=== PATIENT | male | born 1965 | race African-American/Black ===

== ENCOUNTER 2020-09-01 09:48 | Inpatient (IN) | payer OTHER ==
[2020-09-01 11:02] LABS: BASOPHIL 0.1 % (0-2); EOSINOPHIL 0 % (0-5); HCT 44.3 % (42.0-52.0); HGB 14.6 g/dl (13.2-18.0); MCH 28.7 pg (25.0-31.0); MCV 87.2 fL (78.0-100.0); MONOCYTE 7.9 % (0-12); MPV 12.1 fL (6.0-9.5); NEUTROPHIL 79.4 % (41-80); NRBC 0; PLT 188 K/uL (150-400); RBC 5.08 M/uL (4.70-6.00); RDW 14.8 % (11.5-14.0); WBC 9.8 K/uL (4.0-10.5)
[2020-09-01 11:44] LABS: INR 1.08 (0.9-1.2); PROTHROMBIN TIME 13.3 SECONDS (11.4-13.6); PTT 28.5 SECONDS (22.2-34.7)
[2020-09-01 11:45] LABS: D-DIMER 0.93 ug/mLFEU (0.00-0.41)
[2020-09-01 11:47] LABS: PRO-BNP 7 pg/mL (<125)
[2020-09-01 12:10] LABS: BILIRUBIN - TOTAL 0.5 mg/dL (0.2-1.0); BUN/CREAT RATIO (CALC) 20.5 RATIO; C-REACTIVE PROTEIN 8.9 mg/dL (<=0.90); CREATININE 1.12 mg/dL (0.67-1.17); GLOBULIN (CALCULATION) 5.6 g/dL; MAGNESIUM 2.9 mg/dL (1.8-2.4); POTASSIUM 4.1 mmol/L (3.5-5.1); TOTAL PROTEIN 8.6 g/dL (6.4-8.2)
[2020-09-01 12:35] LABS: LACTIC ACID 1.2 mmol/L (0.4-1.9)
--- NOTE | 2020-09-01 12:54 | NUR ---
09/01/20 1200 CALLED TO ER FOR IV START. ATTEMPTED X2 WITHOUT SUCCESS. ORDER RECEIVED FOR MIDLINE INSERTION. PROCEDURE EXPLAINED TO PATIENT. PT PREPPED AND DRAPED IN STERILE FASHION. THE PT'S RIGHT UPPER ARM BASILIC VEIN WAS VISUALIZED USING THE SITE RITE 6 ULTRA SOUND. A 21 GA NEEDLE WAS USED. GOOD BLOOD RETURN WAS NOTED. THE GUIDE WIRE THREADED EASILY. THE NEEDLE WAS REMOVED AND THE MIDLINE CATHETER WAS PLACED OVER THE WIRE. THE WIRE AND SHEATH WERE REMOVED. GOOD BLOOD RETURN WAS NOTED. A CONNECTOR WAS FLUSHED AND PLACED OVER THE END OF THE CATHETER. A STAT LOCK WAS PLACED ON THE CATHETER AND A STERILE SORBAVIEW DRESSING WAS APPLIED OVER THE MIDLINE SITE. PT TOLERATED WELL. PT HAS A 20GA 10CM POWERGLIDE MIDLINE CAHETER IN HIS RIGHT UPPER ARM. GOOD FOR 29 DAYS. NOT A CENTRAL LINE. TOLERATED PROCEDURE WELL. REPORT TO Josemanuel ARAUJO RN IN ER.
[2020-09-01 18:52] LABS: BILIRUBIN NEGATIVE (NEGATIVE); BLOOD 2+ Ery/uL (NEGATIVE); CLARITY HAZY (CLEAR); COLOR YELLOW (YELLOW); GLUCOSE (U) NORMAL (NORMAL); LEUKOCYTES NEGATIVE Leu/uL (NEGATIVE); NITRITE NEGATIVE (NEGATIVE); PROTEIN 2+ mg/dL (NEGATIVE); SPECIFIC GRAVITY 1.025 (1.001-1.030); UROBILINOGEN 0.2 mg/dL (0.2-1.0)
[2020-09-02 05:15] LABS: BASOPHIL 0.1 % (0-2); EOSINOPHIL 0 % (0-5); HCT 43.4 % (42.0-52.0); HGB 13.6 g/dl (13.2-18.0); LYMPHOCYTE 13.3 % (15-48); MCH 27.9 pg (25.0-31.0); MCHC 31.3 g/dL (32.0-36.0); MCV 89.1 fL (78.0-100.0); MONOCYTE 5.5 % (0-12); MPV 12.6 fL (6.0-9.5); NEUTROPHIL 80.1 % (41-80); NRBC 0; PLT 191 K/uL (150-400); RBC 4.87 M/uL (4.70-6.00); RDW 14.8 % (11.5-14.0); WBC 7.2 K/uL (4.0-10.5)
[2020-09-02 06:05] LABS: ALBUMIN 2.6 g/dL (3.4-5.0); BILIRUBIN - TOTAL 0.5 mg/dL (0.2-1.0); BUN/CREAT RATIO (CALC) 23.7 RATIO; C-REACTIVE PROTEIN 8.4 mg/dL (<=0.90); CREATININE 0.97 mg/dL (0.67-1.17); POTASSIUM 4.6 mmol/L (3.5-5.1); TOTAL PROTEIN 7.6 g/dL (6.4-8.2)
[2020-09-03 05:00] LABS: BASOPHIL 0.2 % (0-2); EOSINOPHIL 0 % (0-5); HCT 40.3 % (42.0-52.0); HGB 12.8 g/dl (13.2-18.0); LYMPHOCYTE 10.8 % (15-48); MCH 28.5 pg (25.0-31.0); MCHC 31.8 g/dL (32.0-36.0); MCV 89.8 fL (78.0-100.0); MPV 12.3 fL (6.0-9.5); NEUTROPHIL 81.2 % (41-80); NRBC 0; PLT 228 K/uL (150-400); RBC 4.49 M/uL (4.70-6.00); WBC 11.3 K/uL (4.0-10.5)
[2020-09-03 05:48] LABS: ALBUMIN 2.4 g/dL (3.4-5.0); BILIRUBIN - TOTAL 0.4 mg/dL (0.2-1.0); BUN/CREAT RATIO (CALC) 28.6 RATIO; C-REACTIVE PROTEIN 3.5 mg/dL (<=0.90); CREATININE 0.84 mg/dL (0.67-1.17); GLOBULIN (CALCULATION) 4.5 g/dL; POTASSIUM 4.3 mmol/L (3.5-5.1); TOTAL PROTEIN 6.9 g/dL (6.4-8.2)
[2020-09-04 04:57] LABS: BASOPHIL 0.2 % (0-2); EOSINOPHIL 0 % (0-5); HCT 42.8 % (42.0-52.0); HGB 13.3 g/dl (13.2-18.0); LYMPHOCYTE 8.6 % (15-48); MCH 28.1 pg (25.0-31.0); MCHC 31.1 g/dL (32.0-36.0); MCV 90.3 fL (78.0-100.0); MONOCYTE 5.6 % (0-12); MPV 11.9 fL (6.0-9.5); NEUTROPHIL 84.5 % (41-80); NRBC 0; PLT 266 K/uL (150-400); RBC 4.74 M/uL (4.70-6.00); RDW 14.8 % (11.5-14.0); WBC 14.7 K/uL (4.0-10.5)
[2020-09-04 05:58] LABS: ALBUMIN 2.5 g/dL (3.4-5.0); BILIRUBIN - TOTAL 0.4 mg/dL (0.2-1.0); BUN/CREAT RATIO (CALC) 26.7 RATIO; C-REACTIVE PROTEIN 1.8 mg/dL (<=0.90); CREATININE 0.86 mg/dL (0.67-1.17); GLOBULIN (CALCULATION) 4.7 g/dL; POTASSIUM 4.8 mmol/L (3.5-5.1); TOTAL PROTEIN 7.2 g/dL (6.4-8.2)
[2020-09-05 04:26] LABS: BASOPHIL 0.4 % (0-2); EOSINOPHIL 0.2 % (0-5); HCT 43.6 % (42.0-52.0); HGB 13.8 g/dl (13.2-18.0); LYMPHOCYTE 7.3 % (15-48); MCH 28.2 pg (25.0-31.0); MCHC 31.7 g/dL (32.0-36.0); MONOCYTE 5.8 % (0-12); MPV 12.1 fL (6.0-9.5); NEUTROPHIL 84.6 % (41-80); NRBC 0; PLT 247 K/uL (150-400); RDW 14.6 % (11.5-14.0); WBC 15.7 K/uL (4.0-10.5)
[2020-09-05 05:04] LABS: ALBUMIN 2.7 g/dL (3.4-5.0); CREATININE 0.77 mg/dL (0.67-1.17); GLOBULIN (CALCULATION) 4.7 g/dL; POTASSIUM 4.9 mmol/L (3.5-5.1); TOTAL PROTEIN 7.4 g/dL (6.4-8.2)
[2020-09-05 05:05] LABS: BILIRUBIN - TOTAL 0.7 mg/dL (0.2-1.0); C-REACTIVE PROTEIN 2.7 mg/dL (<=0.90)
--- NOTE | 2020-09-05 14:52 | NUR ---
09/05/20 Discharge is anticipated for 09/06. A referral was made to [facility] for 02 at 6L with an oximizer. Report given to MS DEVI Avery.
[2020-09-06 05:59] LABS: BASOPHIL 0.4 % (0-2); EOSINOPHIL 1.5 % (0-5); HCT 45.4 % (42.0-52.0); HGB 14.3 g/dl (13.2-18.0); MCHC 31.5 g/dL (32.0-36.0); MCV 88.8 fL (78.0-100.0); MONOCYTE 8.7 % (0-12); MPV 11.8 fL (6.0-9.5); NEUTROPHIL 71.1 % (41-80); NRBC 0; PLT 265 K/uL (150-400); RBC 5.11 M/uL (4.70-6.00); RDW 14.6 % (11.5-14.0); WBC 14.2 K/uL (4.0-10.5)
[2020-09-06 06:31] LABS: ALBUMIN 2.7 g/dL (3.4-5.0); BILIRUBIN - TOTAL 0.5 mg/dL (0.2-1.0); BUN/CREAT RATIO (CALC) 23.3 RATIO; CREATININE 0.9 mg/dL (0.67-1.17); GLOBULIN (CALCULATION) 4.7 g/dL; POTASSIUM 4.1 mmol/L (3.5-5.1); TOTAL PROTEIN 7.4 g/dL (6.4-8.2)
[2020-09-06] MEDS ORDERED: VITAMIN D325 MC1 PO (08:39)
[2020-09-06] MEDS ORDERED: ASCORBIC ACID500 MG PO (08:39)
[2020-09-06] MEDS ORDERED: DULERA 200 MCG8.8 GM INH (08:39)
[2020-09-06] MEDS ORDERED: MEDROL 4MG DOSEP4 MG PO (08:39)
--- NOTE | 2020-09-06 10:18 | NUR ---
09/06/20 02 has been delivered by [facility]. Please remind patient to call [facility] upon arrival to home for delivery of concentrator. Report given to MS Gena, RN.
--- NOTE | 2020-09-06 15:20 | NUR ---
PER GERA, MED/CASSIE MGR., PT. IS OUT OF OXYGEN IN THE FIRST TANK AND HAS HAD TO START ON THE SECOND TANK. TC TO FREDI AT [facility] . SHE STATED THAT SHE HAD ATTEMPTED TO CONTACT THE PT., BUT THERE WAS NO ANSWER. GERA WAS ABLE TO GET IN TOUCH WITH PT. AND ADVISED HER THAT [facility] IS ATTMEMPTING TO CALL. SPOUSE STATED THAT [facility] HAS CONTACTED HER AND THEY ARE BRINGING THE CONCENTRATOR. TC FROM [facility], THE BINDERY PRODUCTION MANAGER IS ON HIS WAY NOW TO DELIVER THE CONCENTRATOR. ADVISED ARANZA MACHADO, NURSE AND GERA, AND SAMPSON.
--- NOTE | 2020-09-06 15:26 | NUR ---
Patients family called concerned, she was unable to work the oxygen tank. Patients reported that he was "gasping" for air. Before I was able to help the patient via phone turn on the oxygen tank, she hung up the phone. I attempted to call back, but the patients did not answer. I spoke with Gulshan with CC and she immediatley was able to get ahold of Jennifer, [facility] reported that they were unable to get in contact with the patient. The reported that she was unable to get anyone with [facility] to answer. I was able to get back in contact with the patients minutes later and she reported that she got the oxygen tank working and that the patient was no longer gasping. Jennifer reported that they were on their way to the patient with the concentrator, I reported this to the patients and she stated that she had just spoke to them as well. I spoke with the patients primary RN in charge of discharge and she stated that the patient was sent out of the hosptial on an oxymizer at 6L. She stated that the patient reported he knew how to work the second oxygen tank (patient was sent with extra tank to last until concentrator was deleivered).
--- NOTE | 2020-09-06 15:36 | NUR ---
FREDI AT [facility] HAS ADVISED THAT THE LOGGING SUPERINTENDENT IS AT PT HOME DELIVERING THE CONCENTRATOR.
[2020-09-08 05:10] LABS: (LD) FRACTION 1 14 % (17-32); (LD) FRACTION 2 34 % (25-40); (LD) FRACTION 3 26 % (17-27); (LD) FRACTION 4 13 % (5-13); (LD) FRACTION 5 13 % (4-20); LDH 366 IU/L (121-224)
[2020-09-08 05:10] LABS: (LD) FRACTION 1 18 % (17-32); (LD) FRACTION 2 31 % (25-40); (LD) FRACTION 3 25 % (17-27); (LD) FRACTION 4 13 % (5-13); (LD) FRACTION 5 13 % (4-20); LDH 536 IU/L (121-224)
[2021-01-27] MEDS ORDERED: METFORMIN HCL500 MG PO (14:36)
[2021-01-27] MEDS ORDERED: OMEPRAZOLE40 MG PO (14:36)
== END 2020-09-06 11:45 | disposition home or self-care (01) | DRG 177 ==
LOC: FER 09:48 → FICU 13:26 → FMS 09-05 09:03
PROVIDERS: Allergy & Immunology Allergy; Emergency Medicine; ADMIT Internal Medicine
PROC: 8E0ZXY6 Isolation (ICD-10-PCS; principal; 2020-09-01)
PROC: XW033E5 Introduction of Remdesivir Anti-infective into Peripheral Vein, Percutaneous Approach, New Technology Group 5 (ICD-10-PCS; 2020-09-01)
PROC: 05HY33Z Insertion of Infusion Device into Upper Vein, Percutaneous Approach (ICD-10-PCS; 2020-09-01)
DX: U07.1 COVID-19 (principal); J12.82 Pneumonia due to coronavirus disease 2019; J96.01 Acute respiratory failure with hypoxia; Z68.41 Body mass index [BMI] 40.0-44.9, adult; E78.5 Hyperlipidemia, unspecified; G47.33 Obstructive sleep apnea (adult) (pediatric); E66.01 Morbid (severe) obesity due to excess calories
CPT/HCPCS: 36415; 36600; 71250; 80053; 81001; 82728; 82803; 82962; 83036; 83540; 83605; 83615; 83625; 83735; 83880; 84145; 84484; 85025; 85379; 85610; 85730; 86140; 87040; 93005; 94010; 94640; 94762; C1751; C9399; J0456; J1100; J1170; J1650; J7030; J7050; J8540

== ENCOUNTER → 2021-02-03 | Day surgery (SDC) | payer OTHER ==
[~2021-02-03] VITALS: Ht 175.3 cm; Wt 127.0 kg
[~2021-02-03] MED LIST: ASCORBIC ACID500 MG PO; DULERA 200 MCG8.8 GM INH; MEDROL 4MG DOSEP4 MG PO; METFORMIN HCL500 MG PO; OMEPRAZOLE40 MG PO; VITAMIN D325 MC1 PO
[2021-02-03 07:58] LABS: HCT 42.4 % (42.0-52.0); MCH 28.5 pg (25.0-31.0); MCV 86.2 fL (78.0-100.0); MPV 11.5 fL (6.0-9.5); RBC 4.92 M/uL (4.70-6.00); WBC 9.9 K/uL (4.0-10.5)
[2021-02-03 08:10] LABS: BILIRUBIN - TOTAL 0.5 mg/dL (0.2-1.0); CREATININE 0.89 mg/dL (0.67-1.17); GLOBULIN (CALCULATION) 4.1 g/dL; POTASSIUM 4.2 mmol/L (3.5-5.1); TOTAL PROTEIN 8.1 g/dL (6.4-8.2)
== END | disposition home or self-care (01) ==
LOC: FAS 07:03
PROVIDERS: Surgery
DX: Z12.11 Encounter for screening for malignant neoplasm of colon (principal); K63.5 Polyp of colon; J45.909 Unspecified asthma, uncomplicated; F31.9 Bipolar disorder, unspecified; I10 Essential (primary) hypertension; E78.5 Hyperlipidemia, unspecified; G47.33 Obstructive sleep apnea (adult) (pediatric); E11.9 Type 2 diabetes mellitus without complications; E55.9 Vitamin D deficiency, unspecified; K21.9 Gastro-esophageal reflux disease without esophagitis; Z79.84 Long term (current) use of oral hypoglycemic drugs; Z79.899 Other long term (current) drug therapy
CPT/HCPCS: 36415; 80053; J2704; J7120